=== PATIENT | female | born 1995 | race African-American/Black ===

== ENCOUNTER 2017-04-15 22:06 | Emergency (ER) | payer MEDICAID ==
[~2017-04-15] VITALS: Ht 175.3 cm; Wt 80.0 kg
[~2017-04-15 22:06] MED LIST: ALBUAER3 INH; MONT10TA4 PO; SYMB160A INH
[2017-04-15 22:09] VITALS: BP 146/91; PULSE 75; RESP 16; TEMP 98.3; O2SAT 100
[2017-04-15 22:29] LABS: AMORPHOUS SEDIMENT, URINE RARE; BILIRUBIN, URINE NEG (NEG); BLOOD, URINE NEG (NEG); GLUCOSE,URINE NEG (NEG); KETONE, URINE NEG (NEG); MUCUS URINE FEW /lpf (OCC); NITRITE,URINE NEG (NEG); PH, URINE 6.5 (5.0-8.5); SQUAMOUS EPITHELIAL CELL URINE 10 /hpf (0-5); URINE COLOR YELLOW (YELLW/STRAW); URINE LEUKOCYTE ESTERASE TRACE (NEG)
--- NOTE | 2017-04-15 22:45 | PD ---
HPI Chief Complaint: Complaint Time Seen by Provider: 22:31 Travel History International Travel<30 days: No Contact w/Intl Traveler<30days: No Traveled to known affect area: No History of Present Illness HPI 21-year-old female presents to the ED for evaluation 3 day history of intermittent suprapubic pain, urinary urgency and urinary frequency. Pain is sharp, rated 9/10, no alleviating or exacerbating factors reported. She endorses feeling "hot" but denies fever, chills, nausea, vomiting, back pain, unusual vaginal bleeding. She endorses increased white vaginal discharge. She has not noticed any change in odor. LMP "the beginning of this month." She endorses unprotected sex with a single male partner since then. PFSH Past Medical History Asthma: Yes Diminished Hearing: No Respiratory: Yes (ASTHMA) Immunizations Current: No ?: Not LMP: 04/06/17 : 0 Para: 0 Past Surgical History Cholecystectomy: Yes (2015) Social History Alcohol Use: No Tobacco Use: No Substance Use: Yes (MARIJUANA) Allergies-Medications (Allergen,Severity, Reaction): Coded Allergies: No Known Allergies (Verified , 02/27/16) Reported Meds & Prescriptions Reported Meds & Active Scripts Active Reported Montelukast (Montelukast Sodium) 10 Mg Tab Unknown Dose PO HS Symbicort Inh (Budesonide/Formoterol Fumarate) 160-4.5 Mcg/Act Aero 2 Puff INH BID Review of Systems Except as stated in HPI: all other systems reviewed are Neg Physical Exam Narrative GENERAL: Well-nourished, well-developed female in no acute distress.. SKIN: Focused skin assessment warm/dry. HEAD: Normocephalic. EYES: No scleral icterus. No injection or drainage. NECK: Supple, trachea midline. No JVD or lymphadenopathy. CARDIOVASCULAR: Regular rate and rhythm without murmurs, gallops, or rubs. RESPIRATORY: Breath sounds clear and equal bilaterally. No accessory muscle use. GASTROINTESTINAL: Abdomen soft, nondistended. Mild suprapubic tenderness. Active bowel sounds. MUSCULOSKELETAL: No cyanosis, or edema. BACK: Nontender without obvious deformity. No CVA tenderness. Data Data Last Documented VS Vital Signs Date Time Temp Pulse Resp B/P (MAP) Pulse Ox O2 Delivery O2 Flow Rate FiO2 2/13/18 22:09 98.3 75 16 146/91 (109) 100 Orders Orders Urinalysis - C+S If Indicated (04/15/17 22:07) Labs Laboratory Tests Test 04/15/17 22:17 Urine Color YELLOW Urine Turbidity HAZY Urine pH 6.5 Urine Specific [place] 1.013 Urine Protein 30 mg/dL Urine Glucose (UA) NEG mg/dL Urine Ketones NEG mg/dL Urine Occult Blood NEG Urine Nitrite NEG Urine Bilirubin NEG Urine Urobilinogen 2.0 MG/DL Urine Leukocyte Esterase TRACE Urine WBC 1 /hpf Urine Squamous Epithelial Cells 10 /hpf Urine Amorphous Sediment RARE Urine Mucus FEW /lpf Microscopic Urinalysis Comment CULT NOT INDICATED MDM Medical Decision Making Medical Screen Exam Complete: Yes Emergency Medical Condition: Yes Differential Diagnosis Cystitis versus pyelonephritis versus STI versus ovarian torsion versus versus other Narrative Course 21-year-old female presents to the ED for evaluation 3 day history of intermittent suprapubic pain, urinary urgency and urinary frequency. She endorses increased white vaginal discharge. She has not noticed any change in odor. LMP "the beginning of this month." She endorses unprotected sex with a single male partner since then. Vitals reviewed. Physical exam reveals mild suprapubic tenderness to palpation but is otherwise unremarkable. No culture indicated of the UA. I discussed pelvic exam with the patient who is agreeable. I'm unable to perform this exam in this area. Patient will be moved to the delta pod for further evaluation. Please see an oncoming provider' s note for disposition. Candace Young Apr 15, 2017 22:45
--- NOTE | 2017-04-15 23:39 | PD ---
Data Data Last Documented VS Vital Signs Date Time Temp Pulse Resp B/P (MAP) Pulse Ox O2 Delivery O2 Flow Rate FiO2 04/15/17 22:09 98.3 75 16 146/91 (109) 100 Orders Orders Urinalysis - C+S If Indicated (04/15/17 22:07) Gc And Chlamydia Pcr (04/15/17 23:00) Wet Prep Profile (04/15/17 23:00) Ed Urine Pregnancytest Poc (04/15/17 23:00) Labs Laboratory Tests Test 04/15/17 22:17 04/15/17 23:15 Urine Color YELLOW Urine Turbidity HAZY Urine pH 6.5 Urine Specific [place] 1.013 Urine Protein 30 mg/dL Urine Glucose (UA) NEG mg/dL Urine Ketones NEG mg/dL Urine Occult Blood NEG Urine Nitrite NEG Urine Bilirubin NEG Urine Urobilinogen 2.0 MG/DL Urine Leukocyte Esterase TRACE Urine WBC 1 /hpf Urine Squamous Epithelial Cells 10 /hpf Urine Amorphous Sediment RARE Urine Mucus FEW /lpf Microscopic Urinalysis Comment CULT NOT INDICATED Clue Cells (Wet Prep) NONE SEEN Vaginal Trichomonas (Wet Prep) NONE SEEN Vaginal Yeast (Wet Prep) NONE SEEN MDM Supervised Visit with [facility]: Yes Narrative Course I, Dr. Soriano, have reviewed the advance practice practitioner's documentation and am in agreement, met with the patient face to face, made the diagnosis, and the medical decision making was done by me. See her note for further details. Briefly this is a 21-year-old female who presents for evaluation of lower abdominal/suprapubic pain that has been intermittent for the last 3 days. The patient reports sharp pains as well as some whitish/foul-smelling vaginal discharge. She reports sexual activity with a new partner, however states that she uses protection. No dysuria. No fevers or chills. On physical exam the patient is overall very well-appearing and is very comfortable. There is no abdominal tenderness. No peritoneal signs on exam. History of cholecystectomy. Her vital signs were reviewed slight elevated blood pressure, otherwise unremarkable. UA is not suggestive of UTI. Pelvic exam performed by medical student Mel, supervised by me as well as a female nurse and shows normal external genitalia, normal-appearing cervix, no abnormal of foul- smelling vaginal discharge, no CMT, no adnexal masses or tenderness. UA is not suggestive of UTI. Wet prep is negative for yeast, negative for clue cells, negative for Trichomonas. Patient's clinical exam is not consistent with PID. Her abdominal exam is also benign with no tenderness or peritoneal signs. I do not believe that there is an acute intra-abdominal/surgical process to warrant imaging at this time. Clinical exam is also not consistent with an ovarian torsion. I advised that the patient tried taking ibuprofen for her symptoms. She is overall very well- appearing and appears very comfortable. I believe she is stable for discharge home with further outpatient follow-up with a primary care physician this week. She was advised on when to return to the emergency department. She verbalizes understanding and agreement with plan. Diagnosis Primary Impression: Pelvic pain in female Referrals: [facility] 3 days Primary Care Physician 3 days Additional Instruction: Follow-up with a primary care physician this week. Take ibuprofen for pain. Return to the emergency department for worsening symptoms or any other concerns. Disposition: 01 DISCHARGE HOME Condition: Stable Miguel Soriano MD Apr 15, 2017 23:39
[2017-04-17] MEDS ORDERED: E-ZMIS3 (13:14)
[2017-04-17] MEDS ORDERED: PRED20 PO (13:14)
[2017-04-17] MEDS ORDERED: ALBUAER3 INH (13:14)
== END 2017-04-16 00:22 | disposition home or self-care (01) ==
LOC: NEPD 22:06
DX: R10.2 Pelvic and perineal pain (principal); J45.909 Unspecified asthma, uncomplicated
CPT/HCPCS: 81001; 84703; 87210; 87491; 87591; 99283

== ENCOUNTER 2017-04-17 11:36 | Emergency (ER) | payer MEDICAID ==
[~2017-04-17] VITALS: Ht 175.3 cm; Wt 80.0 kg
[~2017-04-17 11:36] MED LIST changes: -ALBUAER3 INH
[2017-04-17 11:38] VITALS: BP 170/80; PULSE 72; RESP 14; TEMP 98.3; O2SAT 100
--- NOTE | 2017-04-17 12:38 | PD ---
HPI Chief Complaint: Respiratory Distress Time Seen by Provider: 12:33 Travel History International Travel<30 days: No Contact w/Intl Traveler<30days: No Traveled to known affect area: No History of Present Illness HPI 21-year-old female with history of asthma presents for evaluation. For the past few days she has had cough and congestion. She woke up this morning with dyspnea and wheezing. She took her Singulair and symbicort however symptoms persist which prompted evaluation. She reports that she currently does not have any albuterol medication at home. Her primary care physician is Dr. Lemus. She denies any fevers, chills, abdominal pain, leg swelling. She has no other complaints at this time. [facility] Past Medical History Asthma: Yes Diminished Hearing: No Respiratory: Yes (ASTHMA) Immunizations Current: No ?: Not LMP: 04/03/17 : 0 Para: 0 Past Surgical History Cholecystectomy: Yes (2015) Social History Alcohol Use: No Tobacco Use: No Substance Use: Yes (MARIJUANA) Allergies-Medications (Allergen,Severity, Reaction): Coded Allergies: No Known Allergies (Verified Adverse Reaction, Unknown, 04/17/17) Reported Meds & Prescriptions Reported Meds & Active Scripts Active E-Z Spacer-Aerosol Holding Chamber 1 Mis Mis Ea .XX DIRECTED Prednisone 20 Mg Tab 20 Mg PO BID 5 Days Proair Hfa 8.5 GM Inh (Albuterol Sulfate) 90 Mcg/Act Aer 2 Puff INH Q4-6H PRN 108 mcg/actuation Reported Montelukast (Montelukast Sodium) 10 Mg Tab Unknown Dose PO HS Symbicort Inh (Budesonide/Formoterol Fumarate) 160-4.5 Mcg/Act Aero 2 Puff INH BID Review of Systems Except as stated in HPI: all other systems reviewed are Neg Physical Exam Narrative GENERAL: Well-developed well-nourished female who appears anxious. Her vital signs have been reviewed and found to be reassuring. SKIN: Warm and dry. HEAD: Atraumatic. Normocephalic. EYES: Pupils equal and round. No scleral icterus. No injection or drainage. ENT: No nasal bleeding or discharge. Mucous membranes pink and moist. NECK: Trachea midline. No JVD. CARDIOVASCULAR: Regular rate and rhythm. No murmur appreciated. RESPIRATORY: No accessory muscle use. Faint wheezing bilaterally. No crackles. GASTROINTESTINAL: Abdomen soft, non-tender, nondistended. Hepatic and splenic margins not palpable. MUSCULOSKELETAL: No obvious deformities. No clubbing. No cyanosis. No edema. NEUROLOGICAL: Awake and alert. No obvious cranial nerve deficits. Motor grossly within normal limits. Normal speech. Data Data Last Documented VS Vital Signs Date Time Temp Pulse Resp B/P (MAP) Pulse Ox O2 Delivery O2 Flow Rate FiO2 04/17/17 12:58 100 21 04/17/17 11:38 98.3 72 14 170/80 (110) Orders Orders Prednisone (Deltasone) (04/17/17 12:45) Albuterol-Ipratropium Neb (Duoneb Neb) (04/17/17 12:45) [facility] Medical Decision Making Medical Screen Exam Complete: Yes Emergency Medical Condition: Yes Medical Record Reviewed: Yes Differential Diagnosis Asthma exacerbation, bronchitis, reactive airway disease, pulmonary embolism, spontaneous pneumothorax Narrative Course 21-year-old female history of asthma presents with 2 days of cough and congestion, 1 day of dyspnea and wheezing, unrelieved with her Singulair and symbicort. She currently does not have a rescue inhaler. On examination she is faint wheezing bilaterally. She appears quite anxious. Her oxygen saturation is 100%, she is not tachycardic. There is no evidence of DVT and nothing on examination or history to suggest PE. The patient will be given DuoNeb treatment and prednisone. 1315: Upon reexamination the patient reports complete resolution of her symptoms. She will be discharged with a albuterol inhaler, spacer, as well as a short course of prednisone. Diagnosis Primary Impression: Asthma exacerbation Additional Instructions: Medication as directed. Follow-up with primary care physician as needed and return for any acutely new or worsening symptoms. Med/Other Pt SpecificInfo: Prescription(s) given Scripts E-Z Spacer-Aerosol Holding Chamber (E-Z Spacer-Aerosol Holding Chamber) 1 Mis Mis EA .XX DIRECTED for Breathing Treatment, #1 0 Refills Prov: Sundeep Franco MD 04/17/17 Prednisone (Prednisone) 20 Mg Tab 20 MG PO BID for 5 Days, #10 TAB 0 Refills Prov: Sundeep Franco MD 04/17/17 Albuterol 8.5 GM Inh (Proair Hfa 8.5 GM Inh) 90 Mcg/Act Aer 2 PUFF INH Q4-6H Y for SHORTNESS OF BREATH, #1 INHALER 0 Refills 108 mcg/actuation Prov: Sundeep Franco MD 04/17/17 Disposition: 01 DISCHARGE HOME Condition: Stable Baldemar Booker Apr 17, 2017 12:38
[2017-04-17] MEDS ORDERED: predniSONE 20 MG TAB PO ONE (12:45)
[2017-04-17] MEDS: RESP: ALBUTEROL 2.5 MG/IPRATROPIUM 0.5 MG NEB (SCH) INH ×2 (12:55→12:56)
[2017-04-17 12:58] VITALS: O2SAT 100
[2017-04-17] MEDS ORDERED: PRED20 PO (13:14)
[2017-04-17] MEDS ORDERED: ALBUAER3 INH (13:14)
[2017-04-17] MEDS ORDERED: E-ZMIS3 (13:14)
== END 2017-04-17 13:30 | disposition home or self-care (01) ==
LOC: NEPK 11:36
DX: J45.901 Unspecified asthma with (acute) exacerbation (principal)
CPT/HCPCS: 94640; 94664; 99283; J7512